=== PATIENT | male | born 1985 | race Caucasian/White ===

== ENCOUNTER 2022-09-09 13:53 | Emergency (ER) | payer OTHER ==
[~2022-09-09] VITALS: Ht 172.7 cm; Wt 88.6 kg
[2022-09-09] MEDS ORDERED: ACET-897 PO (14:10)
[2022-09-09] MEDS ORDERED: IBUP200T46 PO (14:10)
[2022-09-09 15:28] LABS: BASO % 0.5 % (0.0-1.0); EOS % 0.1 % (0.0-3.0); HEMATOCRIT 47.5 % (42.0-52.0); HEMOGLOBIN 16.4 g/dl (13.5-17.5); LYMPH % 12.3 % (24.0-44.0); MEAN CORPUSCULAR HGB CONC 34.5 g/dl (32.0-36.5); MEAN CORPUSCULAR VOLUME 86.8 fl (80.0-96.0); MONO # 1.2 10^3/uL (0.0-0.8); MONO % 14.7 % (2.0-8.0); NEUTROPHILS # 5.7 10^3/uL (1.5-8.5); NEUTROPHILS % 71.8 % (36.0-66.0); PLATELET COUNT, AUTOMATED 229 10^3/uL (150-450); RED BLOOD COUNT 5.47 10^6/uL (4.30-6.10); WHITE BLOOD COUNT 7.9 10^3/uL (4.0-10.0)
[2022-09-09 15:46] LABS: BLOOD UREA NITROGEN 11 MG/DL (7-18); CALCIUM LEVEL 9.1 MG/DL (8.5-10.1); CARBON DIOXIDE LEVEL 25 MEQ/L (21-32); CHLORIDE LEVEL 105 MEQ/L (98-107); CREATININE FOR GFR 0.94 MG/DL (0.70-1.30); GLOMERULAR FILTRATION RATE > 60.0 (>60); GLUCOSE, FASTING 130 MG/DL (70-100); POTASSIUM SERUM 3.5 MEQ/L (3.5-5.1); SODIUM LEVEL 136 MEQ/L (136-145)
[2022-09-09] MEDS ORDERED: NS 1,000 ML IV ONE (16:10)
[2022-09-09] MEDS ORDERED: ACETAMINOPHEN 1000MG 100ML IV BTL (OFIRMEV) (J0131 PER 10MG) IV ONE (16:10)
[2022-09-09] MEDS ORDERED: diphenhydrAMINE 50MG/ML VIAL (J1200) IV ONE (16:10)
[2022-09-09] MEDS ORDERED: METOCLOPRAMIDE INJ 10MG/2ML VIAL (J2765 PER 1) IV ONE (16:10)
[2022-09-09 17:04] LABS: CK-MB VALUE MASS < 1.0 NG/ML (<3.6); CPK CREATINE PHOSPHOKINASE 110 U/L (39-308); MB/CK RELATIVE INDEX 0.91 (< OR =4)
[2022-09-09] MEDS ORDERED: ISOVUE-370 76% 100ML VIAL As Ordered ONE (17:10)
[2022-09-09 19:00] VITALS: BP 126/79
[2022-09-13 02:09] LABS: IgG P18 AB Absent (.); IgG P23 AB Absent (.); IgG P28 AB Absent (.); IgG P30 AB Absent (.); IgG P39 AB Absent (.); IgG P41 AB Present (.); IgG P45 AB Absent (.); IgG P66 AB Absent (.); IgG P93 AB Absent (.); IgM P23 AB Absent (.); IgM P39 AB Absent (.); IgM P41 AB Absent (.); LYME IgG WB INTERPRETATION Negative (.); LYME IgM WB INTERPRETATION Negative (.)
== END 2022-09-09 19:06 | disposition home or self-care (01) ==
LOC: M ED 13:53
DX: U07.1 COVID-19 (principal)
CPT/HCPCS: 70460; 71046; 80048; 82550; 82553; 83605; 84484; 85025; 86617; 87040; 87389; 87486; 87581; 87633; 87798; 96361; 96374; 96375; 99284; J0131; J1200; J2765; Q9967